=== PATIENT | male | born 1995 | race Caucasian/White ===

== ENCOUNTER → 2023-12-05 | Outpatient (REF) | payer OTHER | LOC: M SFHCRHEU 10:02 | PROVIDERS: ATTEND Internal Medicine | DX: R53.83 Other fatigue (principal) ==

== ENCOUNTER → 2024-02-07 | Outpatient (REF) | payer OTHER | LOC: M SFHCRHEU 13:43 | PROVIDERS: ATTEND Internal Medicine | DX: E55.9 Vitamin D deficiency, unspecified (principal) ==